=== PATIENT | male | born 1995 | race Two or more races ===

== ENCOUNTER 2017-08-16 21:27 | Emergency (ER) | payer OTHER ==
[2017-08-16 21:33] VITALS: BP 130/73; PULSE 114; TEMP 98.3; BMI 23.1
--- NOTE | 2017-08-17 00:40 | PDOC ---
History of Present Illness - General History Source: Patient Exam Limitations: No Limitations <Milady Lopez - Last Filed: 08/17/17 00:55> <Laura Trujillo - Last Filed: 08/17/17 02:19> - General Chief Complaint: Palpitations Stated Complaint: IRREGULAR HEARTBEAT Time Seen by Provider: 08/17/17 00:11 - History of Present Illness Initial Comments: 08/17/17 00:55 The patient is a 22 year old male with no significant past medical history who presents to the ED with complaints of palpitations since earlier today. The patient states he smoked marijuana earlier today and had palpitations and chest tightness afterwards. He also reports similar symptoms yesterday after smoking marijuana. Patient states his friends also smoked marijuana and are not presenting with any symptoms. Denies fever or chills. Denies any other symptoms. Surgical hx: Broken arm repair (multiple years ago) (Milady Lopez) Past History <Milady Lopez - Last Filed: 08/17/17 00:55> - Past Medical History COPD: No - Suicide/Smoking/Psychosocial Hx Smoking History: Never smoked Hx Alcohol Use: No Drug/Substance Use Hx: Yes (Marijuana) Substance Use Type: Marijuana <Laura Trujillo - Last Filed: 08/17/17 02:19> - Past Medical History Allergies/Adverse Reactions: Allergies Allergy/AdvReac Type Severity Reaction Status Date / Time No Known Allergies Allergy Verified 08/16/17 21:32 Review of Systems - Review of Systems Able to Perform ROS?: Yes All Other Systems: Reviewed and Negative <Milady Lopez - Last Filed: 08/17/17 00:55> <Laura Trujillo - Last Filed: 08/17/17 02:19> - Review of Systems Comments:: 08/17/17 00:55 CONSTITUTIONAL: Absent: fever, chills, diaphoresis, generalized weakness, malaise, loss of appetite HEENT: Absent: rhinorrhea, nasal congestion, throat pain, throat swelling, difficulty swallowing, mouth swelling, ear pain, eye pain, visual Changes CARDIOVASCULAR: + palpitations, chest tightness Absent: chest pain, syncope, lightheadedness, peripheral edema RESPIRATORY: Absent: cough, shortness of breath, dyspnea with exertion, orthopnea, wheezing, stridor, hemoptysis GASTROINTESTINAL: Absent: abdominal pain, abdominal distension, nausea, vomiting, diarrhea, constipation, melena, hematochezia GENITOURINARY: Absent: dysuria, frequency, urgency, hesitancy, hematuria, flank pain, genital pain MUSCULOSKELETAL: Absent: myalgia, arthralgia, joint swelling SKIN: Absent: rash, itching, pallor HEMATOLOGIC/IMMUNOLOGIC: Absent: easy bleeding, easy bruising, lymphadenopathy, frequent infections ENDOCRINE: Absent: unexplained weight gain, unexplained weight loss, heat intolerance, cold intolerance NEUROLOGIC: Absent: headache, focal weakness or paresthesias, dizziness, unsteady gait, seizure, mental status changes, bladder or bowel incontinence PSYCHIATRIC: Absent: anxiety, depression, suicidal or homicidal ideation, hallucinations. (Milady Lopez) *Physical Exam <Milady Lopez - Last Filed: 08/17/17 00:55> <Laura Trujillo - Last Filed: 08/17/17 02:19> - Vital Signs Last Vital Signs Temp Pulse Resp BP Pulse Ox 98.3 F 114 H 18 130/73 100 08/16/17 21:30 08/16/17 21:30 08/16/17 21:30 08/16/17 21:30 08/16/17 21:30 - Physical Exam Comments: 08/17/17 00:56 GENERAL:+ anxious appearing Well developed, well nourished. Awake and alert. HEENT: + injected conjunctiva Normocephalic, atraumatic. PERRLA, EOMI. No conjunctival pallor. Moist mucous membranes. Oropharynx is clear. NECK: Supple. Full ROM. No JVD. Carotid pulses 2+ and symmetric, without bruits. No thyromegaly. No lymphadenopathy. CARDIOVASCULAR: Regular rate and rhythm. No murmurs, rubs, or gallops. Distal pulses are 2+ and symmetric. PULMONARY: No evidence of respiratory distress. Lungs clear to auscultation bilaterally. No wheezing, rales or rhonchi. ABDOMINAL: Soft. Non-tender. Non-distended. No rebound or guarding. No organomegaly. Normoactive bowel sounds. MUSCULOSKELETAL Normal range of motion at all joints. No bony deformities or tenderness. No CVA tenderness. EXTREMITIES: No cyanosis. No clubbing. No edema. No calf tenderness. SKIN: Warm and dry. Normal capillary refill. No rashes. No jaundice. NEUROLOGICAL: Alert, awake, appropriate. Cranial nerves 2-12 intact. No deficits to light touch and temperature in face, upper extremities and lower extremities. No motor deficits in the in face, upper extremities and lower extremities. Normoreflexic in the upper and lower extremities. Normal speech. Toes are down- going bilaterally. Gait is normal without ataxia. PSYCHIATRIC: Cooperative. Good eye contact. Appropriate mood and affect. (Milady Lopez) Heart Score/ECG Review - Electrocardiogram EKG: Normal - Age Age: </= 45 - Risk Factors Based on the list above the patient has:: No risk factors known - Troponin Troponin: </= normal limit - ECG Intrepretation Rhythm: Regular Rhythm - P and WA Delta Wave(s) Present: No WPW: No - QRS Widened: RBBB <Laura Trujillo - Last Filed: 08/17/17 02:19> ED Treatment Course - LABORATORY CBC & Chemistry Diagram: 08/17/17 01:19 08/17/17 01:19 <Laura Trujillo - Last Filed: 08/17/17 02:19> - ADDITIONAL ORDERS Additional order review: Laboratory Results 08/17/17 08/17/17 01:19 01:19 Sodium 140 Potassium 4.1 Chloride 107 Carbon Dioxide 27 Anion Gap 6 L BUN 9 Creatinine 0.9 Creat Clearance w eGFR > 60 Random Glucose 94 Calcium 8.6 Total Bilirubin 0.3 AST 23 ALT 22 Alkaline Phosphatase 64 Troponin I < 0.02 Total Protein 7.3 Albumin 4.2 08/17/17 01:19 RBC 4.87 MCV 85.2 MCHC 33.9 RDW 13.7 MPV 8.8 Neutrophils % 66.8 Lymphocytes % 19.4 Monocytes % 9.6 Eosinophils % 4.0 Basophils % 0.2 Medical Decision Making <Milady Lopez - Last Filed: 08/17/17 00:55> <Laura Trujillo - Last Filed: 08/17/17 02:19> - Medical Decision Making 08/17/17 01:35 22-year-old male who denies any significant past medical history smoked marijuana and then developed palpitations. History of present illness he said 2 days ago he went to a different ER same complaining after smoking marijuana. EKG see EKG is normal sinus rhythm at 78 bpm with a right bundle branch block and a normal QTc 444 08/17/17 02:14 Past medical history noncontributory surgical history repair of a fractured arm is infant. Family history no history of early cardiac demise among family members. Troponin is less than 0.02 CBC is normal and his chemistries are all within normal limits Impression Palpitations S/P MARIJUANA USE (Laura Trujillo) *DC/Admit/Observation/Transfer <Milady Lopez - Last Filed: 08/17/17 00:55> <Laura Trujillo - Last Filed: 08/17/17 02:19> Diagnosis at time of Disposition: Palpitations Drug reaction Qualifiers: Encounter type: initial encounter Qualified Code(s): T88.7XXA - Unspecified adverse effect of drug or medicament, initial encounter - Discharge Dispostion Disposition: HOME Condition at time of disposition: Stable - Referrals Referrals: Ester Mcelroy [Primary Care Provider] - - Patient Instructions Printed Discharge Instructions: DI for Palpitations, DI for Adverse Drug Reaction -- Other Additional Instructions: PLEASE REFRAIN FOR CANNABIS USE FOLLOW UP WITH YOUR DOCTOR TO GET AN ECHO OF YOUR HEART - Post Discharge Activity - Attestations Scribe Attestion: 08/17/17 00:56 Documentation prepared by Milady Lopez, acting as medical voucher clerk for Laura Trujillo MD (Milady Lopez)
[2017-08-17 01:30] LABS: BASO % 0.2 % (0-2.0); HEMATOCRIT 41.5 % (35.4-49); HEMOGLOBIN 14.1 GM/dL (11.7-16.9); LYMPH % 19.4 % (8-40); MCH 28.9 pg (25.7-33.7); MCHC 33.9 g/dl (32.0-35.9); MEAN CELL VOLUME 85.2 fl (80-96); MEAN PLT VOLUME 8.8 fl (7.5-11.1); MONO % 9.6 % (3.8-10.2); NEUT % 66.8 % (42.8-82.8); PLATELET COUNT 180 K/MM3 (134-434); RBC 4.87 M/mm3 (4.00-5.60); RDW 13.7 % (11.9-15.9)
[2017-08-17 01:52] LABS: ALBUMIN 4.2 g/dl (3.4-5.0); ANION GAP 6 (8-16); BILIRUBIN,TOTAL 0.3 mg/dL (0.2-1.0); BLOOD UREA NITROGEN 9 mg/dL (7-18); CALCIUM 8.6 mg/dL (8.5-10.1); CHLORIDE 107 mmol/L (98-107); CO2 27 mmol/L (21-32); CREATININE 0.9 mg/dL (0.7-1.3); GLUCOSE,RANDOM 94 mg/dL (74-106); POTASSIUM 4.1 mmol/L (3.5-5.1); SGOT/AST 23 U/L (15-37); SODIUM 140 mmol/L (136-145); TOT PROT 7.3 g/dl (6.4-8.2)
[2017-08-17 02:09] LABS: ALK PHOS 64 U/L (45-117); SGPT/ALT 22 U/L (12-78)
--- NOTE | 2017-08-17 23:43 | EKG ---
Test Reason : Blood Pressure : / mmHG Vent. Rate : 082 BPM Atrial Rate : 082 BPM P-R Int : 160 ms QRS Dur : 130 ms QT Int : 382 ms P-R-T Axes : 065 069 052 degrees QTc Int : 446 ms NORMAL SINUS RHYTHM RIGHT BUNDLE BRANCH BLOCK ABNORMAL ECG NO PREVIOUS ECGS AVAILABLE Confirmed by MARIANELA GUZMAN, SAV ([id number]) on 08/17/2017 11:43:07 PM Referred By: Confirmed By:SAV BEAR MD
== END 2017-08-17 02:24 | disposition home or self-care (01) ==
LOC: JER 21:27
DX: T40.7X1A Poisoning by cannabis (derivatives), accidental (unintentional), initial encounter (principal); R00.2 Palpitations; Y92.89 Other specified places as the place of occurrence of the external cause
CPT/HCPCS: 36415; 80053; 84484; 85025; 93005; 93010; 99281-25

== ENCOUNTER 2017-08-17 22:00 | Emergency (ER) | payer OTHER ==
[2017-08-17 23:07] VITALS: BP 127/85; PULSE 87; TEMP 98.5; BMI 21.4
--- NOTE | 2017-08-17 23:13 | PDOC ---
History of Present Illness - General History Source: Patient Exam Limitations: No Limitations <Alma Delia Bell - Last Filed: 08/18/17 01:14> <Laura Trujillo - Last Filed: 08/18/17 02:04> - General Chief Complaint: Chest Pain Stated Complaint: CHEST PAIN Time Seen by Provider: 08/17/17 23:12 - History of Present Illness Initial Comments: 08/18/17 01:14 The patient is a 22 year old male with no significant past medical history presents to the emergency department with chest pain all day. The patient reports he was at the gym earlier today doing side lateral raises when the pain manifested, states its uncommon for him to not finish his workout but he had to stop secondary to pain. The patient states he is experiencing chest tightness and shaking (might be due to anxiety he states). The patient was at the ED 1 day ago with similar symptoms, chest pain s/p smoking marijuana also a day prior the patient experienced a similar incident, chest pain after smoking marijuana. The patient states a history of seasonal allergies, takes zyrtec which he states he hasnt taken recently. Denies any numbness, tingling or loss of sensation. Denies any abd pain or upper extremity pain. Denies nausea, vomiting, chills, or fever. Allergies: Seasonal allergies Surgical history: Broken arm repair (multiple years ago) Social history: Reports the use of marijuana. Denies history of smoking or alcohol use. PCP: Ester Soliz (Alma Delia Bell) Past History <Alma Delia Bell - Last Filed: 08/18/17 01:14> - Past Medical History COPD: No - Suicide/Smoking/Psychosocial Hx Smoking History: Never smoked Have you smoked in the past 12 months: No Information on smoking cessation initiated: No Hx Alcohol Use: No Drug/Substance Use Hx: No Substance Use Type: Marijuana <Laura Trujillo - Last Filed: 08/18/17 02:04> - Past Medical History Allergies/Adverse Reactions: Allergies Allergy/AdvReac Type Severity Reaction Status Date / Time No Known Allergies Allergy Verified 08/17/17 23:08 Review of Systems - Review of Systems Able to Perform ROS?: Yes <Alma Delia Bell - Last Filed: 08/18/17 01:14> <Laura Trujillo - Last Filed: 08/18/17 02:04> - Review of Systems Comments:: 08/18/17 01:14 CONSTITUTIONAL: (+)Shakes (due to anxiety). Absent: fever, chills, diaphoresis, generalized weakness, malaise, loss of appetite HEENT: Absent: rhinorrhea, nasal congestion, throat pain, throat swelling, difficulty swallowing, mouth swelling, ear pain, eye pain, visual Changes CARDIOVASCULAR: (+) Chest pain/tightness Absent: syncope, palpitations, irregular heart rate, lightheadedness, peripheral edema RESPIRATORY: Absent: cough, shortness of breath, dyspnea with exertion, orthopnea, wheezing, stridor, hemoptysis GASTROINTESTINAL: Absent: abdominal pain, abdominal distension, nausea, vomiting, diarrhea, constipation, melena, hematochezia GENITOURINARY: Absent: dysuria, frequency, urgency, hesitancy, hematuria, flank pain, genital pain MUSCULOSKELETAL: Absent: myalgia, arthralgia, joint swelling SKIN: Absent: rash, itching, pallor HEMATOLOGIC/IMMUNOLOGIC: Absent: easy bleeding, easy bruising, lymphadenopathy, frequent infections ENDOCRINE: Absent: unexplained weight gain, unexplained weight loss, heat intolerance, cold intolerance NEUROLOGIC: Absent: headache, focal weakness or paresthesias, dizziness, unsteady gait, seizure, mental status changes, bladder or bowel incontinence PSYCHIATRIC: Absent: anxiety, depression, suicidal or homicidal ideation, hallucinations. (Alma Delia Bell) *Physical Exam <Alma Delia Bell - Last Filed: 08/18/17 01:14> <Laura Trujillo - Last Filed: 08/18/17 02:04> - Vital Signs Last Vital Signs Temp Pulse Resp BP Pulse Ox 98.5 F 87 19 127/85 98 08/17/17 23:04 08/17/17 23:04 08/17/17 23:04 08/17/17 23:04 08/17/17 23:04 - Physical Exam Comments: 08/18/17 01:15 GENERAL: Well developed, well nourished. Awake and alert. No acute distress. HEENT: Normocephalic, atraumatic. PERRLA, EOMI. No conjunctival pallor. Sclera are non- icteric. Moist mucous membranes. Oropharynx is clear. NECK: Supple. Full ROM. No JVD. Carotid pulses 2+ and symmetric, without bruits. No thyromegaly. No lymphadenopathy. CARDIOVASCULAR: Regular rate and rhythm. No murmurs, rubs, or gallops. Distal pulses are 2+ and symmetric. PULMONARY: No evidence of respiratory distress. Lungs clear to auscultation bilaterally. No wheezing, rales or rhonchi. ABDOMINAL: Soft. Non-tender. Non-distended. No rebound or guarding. No organomegaly. Normoactive bowel sounds. MUSCULOSKELETAL Normal range of motion at all joints. No bony deformities or tenderness. No CVA tenderness. EXTREMITIES: No cyanosis. No clubbing. No edema. No calf tenderness. SKIN: Warm and dry. Normal capillary refill. No rashes. No jaundice. NEUROLOGICAL: Alert, awake, appropriate. Cranial nerves 2-12 intact. No deficits to light touch and temperature in face, upper extremities and lower extremities. No motor deficits in the in face, upper extremities and lower extremities. Normoreflexic in the upper and lower extremities. Normal speech. Toes are down- going bilaterally. Gait is normal without ataxia. PSYCHIATRIC: Cooperative. Good eye contact. Appropriate mood and affect. (Alma Delia Bell) - Procedure Monitoring Vital Signs: Vital Signs Temp Pulse Resp BP Pulse Ox 98.5 F 87 19 127/85 98 08/17/17 23:04 08/17/17 23:04 08/17/17 23:04 08/17/17 23:04 08/17/17 23:04 ED Treatment Course - LABORATORY CBC & Chemistry Diagram: 08/18/17 00:48 08/18/17 00:48 <Alma Delia Bell - Last Filed: 08/18/17 01:14> - LABORATORY CBC & Chemistry Diagram: 08/18/17 00:48 08/18/17 00:48 <Laura Trujillo - Last Filed: 08/18/17 02:04> - ADDITIONAL ORDERS Additional order review: Laboratory Results 08/18/17 08/18/17 00:48 00:48 PT with INR 12.70 INR 1.12 Sodium 141 Potassium 3.6 Chloride 107 Carbon Dioxide 27 Anion Gap 7 L BUN 13 D Creatinine 1.0 Creat Clearance w eGFR > 60 Random Glucose 86 Calcium 8.3 L Magnesium 2.2 Total Bilirubin 0.4 D AST 45 H D ALT 57 D Alkaline Phosphatase 68 Creatine Kinase 124 Troponin I < 0.02 Total Protein 7.1 Albumin 4.1 08/18/17 00:48 RBC 4.96 MCV 86.1 MCHC 33.3 RDW 13.7 MPV 8.9 Neutrophils % 56.4 Lymphocytes % 28.3 D Monocytes % 11.1 H Eosinophils % 4.0 Basophils % 0.2 - RADIOLOGY Radiology Studies Ordered: Category Date Time Status CHEST PA & LAT [RAD] Stat Radiology 08/18/17 00:52 Taken Medical Decision Making <Alma Delia Bell - Last Filed: 08/18/17 01:14> <Laura Trujillo - Last Filed: 08/18/17 02:04> - Medical Decision Making 08/18/17 02:02 Second visit for this slender 22-year-old male with left-sided chest pain that was nonradiating. She had chest pain twice this week, but each time he has been smoking marijuana prior Troponin is negative Chest x-ray shows normal cardiac silhouette. Discussed the findings with the patient and his mother. Plan is for an echo AT HIS DOCTOR'S OFFICE AT [facility] this week (Laura Trujillo) *DC/Admit/Observation/Transfer <Alma Delia Bell - Last Filed: 08/18/17 01:14> <Laura Trujillo - Last Filed: 08/18/17 02:04> Diagnosis at time of Disposition: Chest pain Qualifiers: Chest pain type: unspecified Qualified Code(s): R07.9 - Chest pain, unspecified - Discharge Dispostion Disposition: HOME Condition at time of disposition: Stable - Referrals Referrals: Ester Mcelroy [Primary Care Provider] - - Patient Instructions Printed Discharge Instructions: DI for Chest Pain Additional Instructions: PLEASE MAKE AN APPOINTMENT WITH YOUR DOCTOR SOON POSSIBLE TO ARRANGE FOR AN ECHO OF YOUR HEART RETURN FOR ANY WORSENING SYMPTOMS - Post Discharge Activity - Attestations Scribe Attestion: 08/18/17 01:15 Documentation prepared by Alma Delia Bell, acting as medical appointment scheduler for Laura Trujillo MD. (Alma Delia Bell)
[2017-08-17] MEDS ORDERED: ASPIRIN 81 MG CHEWABLE TABLETS PO ONE (23:16)
[2017-08-18 01:11] LABS: BASO % 0.2 % (0-2.0); HEMATOCRIT 42.7 % (35.4-49); HEMOGLOBIN 14.2 GM/dL (11.7-16.9); LYMPH % 28.3 % (8-40); MCH 28.7 pg (25.7-33.7); MCHC 33.3 g/dl (32.0-35.9); MEAN CELL VOLUME 86.1 fl (80-96); MEAN PLT VOLUME 8.9 fl (7.5-11.1); MONO % 11.1 % (3.8-10.2); NEUT % 56.4 % (42.8-82.8); PLATELET COUNT 195 K/MM3 (134-434); RBC 4.96 M/mm3 (4.00-5.60); RDW 13.7 % (11.9-15.9); WHITE BLOOD COUNT 7.8 K/mm3 (4.0-10.0)
[2017-08-18 01:22] LABS: INR 1.12 (0.82-1.09); PROTHROMBIN TIME (PATIENT) 12.7 SEC (9.7-13.0)
[2017-08-18 01:32] LABS: ALBUMIN 4.1 g/dl (3.4-5.0); ANION GAP 7 (8-16); BILIRUBIN,TOTAL 0.4 mg/dL (0.2-1.0); BLOOD UREA NITROGEN 13 mg/dL (7-18); CALCIUM 8.3 mg/dL (8.5-10.1); CHLORIDE 107 mmol/L (98-107); CO2 27 mmol/L (21-32); GLUCOSE,RANDOM 86 mg/dL (74-106); MAGNESIUM 2.2 mg/dL (1.8-2.4); POTASSIUM 3.6 mmol/L (3.5-5.1); SGOT/AST 45 U/L (15-37); SGPT/ALT 57 U/L (12-78); SODIUM 141 mmol/L (136-145); TOT PROT 7.1 g/dl (6.4-8.2)
[2017-08-18 01:35] LABS: ALK PHOS 68 U/L (45-117)
[2017-08-18 02:04] LABS: COCAINE, UR NEGATIVE ng/ml (CUTOFF=300); METHADONE, UR NEGATIVE ng/ml (CUTOFF=300); OPIATES, URI NEGATIVE ng/ml (CUTOFF=300); PHENCYCLIDINE,URINE NEGATIVE ng/ml (CUTOFF=25); URINE AMPHETAMINES NEGATIVE ng/ml (CUTOFF=500); URINE BARBITURATES NEGATIVE ng/ml (CUTOFF=200); URINE BENZODIAZEPINES NEGATIVE ng/ml (CUTOFF=200)
--- NOTE | 2017-08-18 16:16 | EKG ---
Test Reason : Blood Pressure : / mmHG Vent. Rate : 060 BPM Atrial Rate : 060 BPM P-R Int : 158 ms QRS Dur : 150 ms QT Int : 428 ms P-R-T Axes : 062 071 052 degrees QTc Int : 428 ms NORMAL SINUS RHYTHM WITH SINUS ARRHYTHMIA RIGHT BUNDLE BRANCH BLOCK ABNORMAL ECG WHEN COMPARED WITH ECG OF 17-AUG-2017 00:39, NO SIGNIFICANT CHANGE WAS FOUND Confirmed by MD Renan, Lv ([id number]) on 08/18/2017 4:15:39 PM Referred By: Confirmed By:Lv Urrutia MD
== END 2017-08-18 03:09 | disposition home or self-care (01) ==
LOC: JER 22:00
DX: R07.89 Other chest pain (principal); F12.10 Cannabis abuse, uncomplicated; F41.9 Anxiety disorder, unspecified
CPT/HCPCS: 36415; 71046-TC-FY; 80053; 80307; 82550; 83735; 84484; 85025; 85610; 93005; 93010; 99281-25

== ENCOUNTER 2021-10-27 12:31 | Emergency (ER) | payer OTHER ==
[2021-10-27 12:55] VITALS: RESP 19; BMI 27.3
[2021-10-27] MEDS ORDERED: SODIUM CHLORIDE 0.9% 500 ML INFUS.BAG IV ONE (12:55)
[2021-10-27] MEDS ORDERED: KETOROLAC TROMETHAMINE 30 MG/1 ML VIAL IVPUSH ONE (12:56)
[2021-10-27] MEDS ORDERED: ACETAMINOPHEN 1000 MG/100 ML BAG IVPB ONE (12:56)
[2021-10-27] MEDS ORDERED: ONDANSETRON 4 MG/2 ML VIAL IVPUSH ONE (12:56)
[2021-10-27] MEDS ORDERED: ACETAMINOPHEN INJECTION 100 ML IVPB ONE (13:44)
[2021-10-27] MEDS ORDERED: ONDANSETRON 4 MG/2 ML VIAL ONE (13:45)
[2021-10-27] MEDS ORDERED: KETOROLAC TROMETHAMINE 30 MG/1 ML VIAL ONE (13:45)
[2021-10-27 14:15] LABS: BASO % 0.2 % (0-2.0); HEMATOCRIT 43.2 % (35.4-49); HEMOGLOBIN 14.7 GM/dL (11.7-16.9); LYMPH % 9.3 % (8-40); MCH 28.3 pg (25.7-33.7); MCHC 34.1 g/dl (32.0-35.9); MEAN CELL VOLUME 83.1 fl (80-96); MEAN PLT VOLUME 8.4 fl (7.5-11.1); MONO % 12.8 % (3.8-10.2); NEUT % 76.7 % (42.8-82.8); PLATELET COUNT 158 10^3/uL (134-434); RDW 14.5 % (11.9-15.9); WHITE BLOOD COUNT 8.7 K/mm3 (4.0-10.0)
[2021-10-27 14:38] LABS: CALCIUM 8.5 mg/dL (8.5-10.1)
[2021-10-27 14:39] LABS: ALBUMIN 4.2 g/dl (3.4-5.0); BLOOD UREA NITROGEN 14.4 mg/dL (7-18)
[2021-10-27 14:42] LABS: CREATININE 0.9 mg/dL (0.55-1.3)
[2021-10-27 14:44] LABS: BILIRUBIN,TOTAL 0.6 mg/dL (0.2-1); TOT PROT 7.6 g/dl (6.4-8.2)
[2021-10-27 15:17] VITALS: BP 110/82; PULSE 88; TEMP 99.2
== END 2021-10-27 16:17 | disposition home or self-care (01) ==
LOC: JER 12:31
PROC: 3E0333Z Introduction of Anti-inflammatory into Peripheral Vein, Percutaneous Approach (ICD-10-PCS; principal; 2021-10-27)
PROC: 3E0333Z Introduction of Anti-inflammatory into Peripheral Vein, Percutaneous Approach (ICD-10-PCS; 2021-10-27)
PROC: 3E033GC Introduction of Other Therapeutic Substance into Peripheral Vein, Percutaneous Approach (ICD-10-PCS; 2021-10-27)
DX: R50.9 Fever, unspecified (principal); M79.10 Myalgia, unspecified site; R19.7 Diarrhea, unspecified
CPT/HCPCS: 0241U-QW; 36415; 71046-TC-FY; 80053; 85025; 99284-25